=== PATIENT | male | born 1950 | race Caucasian/White ===

== ENCOUNTER 2024-04-23 13:44 | Outpatient (CLI) | payer OTHER, SELFPAY | END 2024-04-23 13:45 | disposition home or self-care (01) | LOC: WOUND 13:52 | PROVIDERS: PCP Family Medicine; Visit Provider Nurse Practitioner Family | DX: E10.621 Type 1 diabetes mellitus with foot ulcer (principal); L97.528 Non-pressure chronic ulcer of other part of left foot with other specified severity; L97.512 Non-pressure chronic ulcer of other part of right foot with fat layer exposed; I87.311 Chronic venous hypertension (idiopathic) with ulcer of right lower extremity; L97.812 Non-pressure chronic ulcer of other part of right lower leg with fat layer exposed; I87.2 Venous insufficiency (chronic) (peripheral); L97.818 Non-pressure chronic ulcer of other part of right lower leg with other specified severity; Z79.4 Long term (current) use of insulin; Z72.0 Tobacco use | CPT/HCPCS: 73630; 97602; G0463 ==

== ENCOUNTER 2024-04-23 15:53 | Outpatient (CLI) | payer OTHER, SELFPAY ==
--- NOTE | 2024-04-23 16:00 | CRLHL7_ITS ---
For Patients: As a result of the Century Cures Act, medical imaging exams and procedure reports are released immediately into your electronic medical record. You may view this report before your referring provider. If you have questions, please contact your health care provider. INDICATION: Nonhealing wounds. TECHNIQUE: Three views of the left foot. FINDINGS: Tiny nondisplaced chip fracture of the base of the 1st proximal phalanx seen on the frontal and oblique views. Diffuse demineralization. Bandage around the great toe. No subcutaneous gas or radiopaque foreign body. No specific radiographic evidence for osteomyelitis. Multifocal joint space narrowing greatest in the 1st IP joint. Diffuse arterial calcifications. Partially visualized tibial IM nail. Dictated by Taj Lindsey MD @ 04/24/2024 11:39:26 AM (Electronically Signed)
== END 2024-04-23 15:54 | disposition home or self-care (01) ==
LOC: RAD 15:54
PROVIDERS: PCP Family Medicine; Visit Provider Nurse Practitioner Family
DX: L97.529 Non-pressure chronic ulcer of other part of left foot with unspecified severity (principal)
CPT/HCPCS: 73630

== ENCOUNTER 2024-04-30 10:11 | Outpatient (CLI) | payer OTHER, SELFPAY | END 2024-04-30 10:12 | disposition home or self-care (01) | LOC: WOUND 10:11 | PROVIDERS: PCP Family Medicine; Visit Provider Nurse Practitioner Family | DX: I87.311 Chronic venous hypertension (idiopathic) with ulcer of right lower extremity (principal); I87.2 Venous insufficiency (chronic) (peripheral); L97.812 Non-pressure chronic ulcer of other part of right lower leg with fat layer exposed; E10.621 Type 1 diabetes mellitus with foot ulcer; L97.528 Non-pressure chronic ulcer of other part of left foot with other specified severity; L97.518 Non-pressure chronic ulcer of other part of right foot with other specified severity; Z72.0 Tobacco use; Z79.4 Long term (current) use of insulin | CPT/HCPCS: 97602 ==

== ENCOUNTER 2024-05-07 12:31 | Outpatient (CLI) | payer OTHER, SELFPAY | END 2024-05-07 12:32 | disposition home or self-care (01) | LOC: WOUND 12:32 | PROVIDERS: PCP Family Medicine; Visit Provider Nurse Practitioner Family | DX: E10.621 Type 1 diabetes mellitus with foot ulcer (principal); I70.245 Atherosclerosis of native arteries of left leg with ulceration of other part of foot; L97.528 Non-pressure chronic ulcer of other part of left foot with other specified severity; L97.512 Non-pressure chronic ulcer of other part of right foot with fat layer exposed; Z79.4 Long term (current) use of insulin; Z72.0 Tobacco use | CPT/HCPCS: 87070; 87186; 97597; 97602; G0463 ==

== ENCOUNTER 2024-05-14 07:01 | Outpatient (CLI) | payer OTHER, SELFPAY ==
--- NOTE | 2024-05-14 07:15 | CRLHL7_ITS ---
For Patients: As a result of the Century Cures Act, medical imaging exams and procedure reports are released immediately into your electronic medical record. You may view this report before your referring provider. If you have questions, please contact your health care provider. EXAM: MRI OF THE LEFT FOOT, WITHOUT AND WITH IV CONTRAST CLINICAL INDICATION: Chronic ulceration. COMPARISON PLAIN FILMS: 04/23/2024. COMPARISON CROSS-SECTIONAL IMAGING STUDIES: None. TECHNICAL: Axial, sagittal and coronal T1, PD and STIR images precontrast. Postcontrast T1 weighted imaging with fat saturation. Contrast: Dotarem, 18 mL IV. FINDINGS: SOFT TISSUES JOINTS AND BONES: Extensive soft tissue volume loss involving the dorsal and medial aspect of the great toe distal phalanx and distal aspect of the proximal phalanx. Soft tissue thickening in the plantar aspect of the great toe. No subcutaneous abscess. There is a mild amount of osseous volume loss intramedullary edema in the tuft of the distal phalanx consistent with osteomyelitis. No fatty marrow replacement in the base of the distal phalanx or in the proximal phalanx to suggest osteomyelitis. No effusion in the IP joint. No loss of fatty marrow in the 2nd toe to suggest osteomyelitis. Diffuse subcutaneous edema and enhancement throughout the toes and foot. Degenerative changes in the 1st MTP joint. TENDONS AND MUSCLES: Diffuse muscular atrophy and edema. No tenosynovitis. IMPRESSION: 1. Soft tissue volume loss in the great toe distal and proximal phalanx. Small area of osteomyelitis in the distal phalanx of the great toe. No subcutaneous abscess. 2. Soft tissue thickening in the plantar aspect of the great toe. 3. Subcutaneous edema and enhancement throughout the toes and foot. 4. Diffuse muscular atrophy and edema. 5. Degenerative changes in the 1st MTP joint. Dictated by Jean Paul Quiroga MD @ 05/14/2024 12:36:58 PM (Electronically Signed)
== END 2024-05-14 07:02 | disposition home or self-care (01) ==
LOC: MRI 07:02
PROVIDERS: PCP Family Medicine; Visit Provider Nurse Practitioner Family
DX: L97.528 Non-pressure chronic ulcer of other part of left foot with other specified severity (principal); M86.8X7 Other osteomyelitis, ankle and foot; M19.072 Primary osteoarthritis, left ankle and foot
CPT/HCPCS: 73720; 96372; 97602; A9575; J0696

== ENCOUNTER 2024-05-21 10:58 | Outpatient (CLI) | payer OTHER, SELFPAY | END 2024-05-21 10:59 | disposition home or self-care (01) | PROVIDERS: PCP Family Medicine; Visit Provider Nurse Practitioner Family | DX: E10.621 Type 1 diabetes mellitus with foot ulcer (principal); I87.2 Venous insufficiency (chronic) (peripheral); L97.528 Non-pressure chronic ulcer of other part of left foot with other specified severity; L97.518 Non-pressure chronic ulcer of other part of right foot with other specified severity; Z79.4 Long term (current) use of insulin | CPT/HCPCS: 87070; 87186; 97597; 97602 ==

== ENCOUNTER 2024-05-28 11:23 | Outpatient (CLI) | payer OTHER, SELFPAY ==
[2024-05-28 12:47] LABS: Chloride* 105 mmol/L (96-114); Potassium* 4.6 mmol/L (3.6-5.1); Sodium* 140 mmol/L (135-149)
[2024-05-28 12:50] LABS: Anion Gap 6 mEq/L (7-15); Blood Urea Nitrogen* 17 mg/dL (7-30); Carbon Dioxide* 29 mmol/L (20-32); Estimated Glomerular Filt Rate 79 ml/min
[2024-05-28 12:51] LABS: Calcium* 9.1 mg/dL (8.4-10.6); Glucose* 209 mg/dL (60-115)
== END 2024-05-28 11:24 | disposition home or self-care (01) ==
LOC: WOUND 11:23
PROVIDERS: PCP Family Medicine; Visit Provider Nurse Practitioner Family
DX: E11.621 Type 2 diabetes mellitus with foot ulcer (principal); M86.172 Other acute osteomyelitis, left ankle and foot; L97.528 Non-pressure chronic ulcer of other part of left foot with other specified severity; L97.518 Non-pressure chronic ulcer of other part of right foot with other specified severity; Z79.4 Long term (current) use of insulin; Z79.899 Other long term (current) drug therapy
CPT/HCPCS: 36415; 80048; 97597

== ENCOUNTER 2024-06-04 14:34 | Outpatient (CLI) | payer OTHER, SELFPAY | END 2024-06-04 14:35 | disposition home or self-care (01) | LOC: WOUND 14:34 | PROVIDERS: PCP Family Medicine; Visit Provider Nurse Practitioner Family | DX: E10.621 Type 1 diabetes mellitus with foot ulcer (principal); M86.172 Other acute osteomyelitis, left ankle and foot; L97.528 Non-pressure chronic ulcer of other part of left foot with other specified severity; L97.512 Non-pressure chronic ulcer of other part of right foot with fat layer exposed; Z79.4 Long term (current) use of insulin | CPT/HCPCS: 97602; G0463 ==

== ENCOUNTER 2024-06-11 15:13 | Outpatient (CLI) | payer OTHER, SELFPAY | END 2024-06-11 15:14 | disposition home or self-care (01) | LOC: WOUND 15:13 | PROVIDERS: PCP Family Medicine; Visit Provider Physician Assistant Surgical | DX: E10.621 Type 1 diabetes mellitus with foot ulcer (principal); M86.172 Other acute osteomyelitis, left ankle and foot; L97.528 Non-pressure chronic ulcer of other part of left foot with other specified severity; L97.512 Non-pressure chronic ulcer of other part of right foot with fat layer exposed; Z72.0 Tobacco use; Z79.4 Long term (current) use of insulin | CPT/HCPCS: G0463 ==

== ENCOUNTER 2024-06-18 14:39 | Outpatient (CLI) | payer OTHER, SELFPAY | END 2024-06-18 14:40 | disposition home or self-care (01) | LOC: WOUND 14:39 | PROVIDERS: PCP Family Medicine; Visit Provider Nurse Practitioner Family | DX: E10.621 Type 1 diabetes mellitus with foot ulcer (principal); L97.528 Non-pressure chronic ulcer of other part of left foot with other specified severity; Z79.4 Long term (current) use of insulin | CPT/HCPCS: 97597 ==

== ENCOUNTER 2024-06-25 13:14 | Outpatient (CLI) | payer OTHER, SELFPAY | END 2024-06-25 13:15 | disposition home or self-care (01) | LOC: WOUND 13:14 | PROVIDERS: PCP Family Medicine; Visit Provider Nurse Practitioner Family | DX: E11.621 Type 2 diabetes mellitus with foot ulcer (principal); M86.172 Other acute osteomyelitis, left ankle and foot; L97.528 Non-pressure chronic ulcer of other part of left foot with other specified severity | CPT/HCPCS: 97597; 97598 ==

== ENCOUNTER 2024-07-09 13:23 | Outpatient (CLI) | payer OTHER, SELFPAY | END 2024-07-09 13:24 | disposition home or self-care (01) | LOC: WOUND 13:23 | PROVIDERS: PCP Family Medicine; Visit Provider Nurse Practitioner Family | DX: E11.621 Type 2 diabetes mellitus with foot ulcer (principal); L97.528 Non-pressure chronic ulcer of other part of left foot with other specified severity; I87.312 Chronic venous hypertension (idiopathic) with ulcer of left lower extremity; I87.2 Venous insufficiency (chronic) (peripheral); L97.222 Non-pressure chronic ulcer of left calf with fat layer exposed; Z79.4 Long term (current) use of insulin | CPT/HCPCS: 11043; 11046; 97602 ==

== ENCOUNTER 2024-07-16 13:23 | Outpatient (CLI) | payer OTHER, SELFPAY | END 2024-07-16 13:24 | disposition home or self-care (01) | LOC: WOUND 13:23 | PROVIDERS: PCP Family Medicine; Visit Provider Nurse Practitioner Family | DX: E10.621 Type 1 diabetes mellitus with foot ulcer (principal); L97.528 Non-pressure chronic ulcer of other part of left foot with other specified severity; I87.312 Chronic venous hypertension (idiopathic) with ulcer of left lower extremity; I87.2 Venous insufficiency (chronic) (peripheral); L97.228 Non-pressure chronic ulcer of left calf with other specified severity; Z79.4 Long term (current) use of insulin | CPT/HCPCS: 11042; 11045; 97597; 97598 ==

== ENCOUNTER 2024-07-23 13:21 | Outpatient (CLI) | payer OTHER, SELFPAY | END 2024-07-23 13:22 | disposition home or self-care (01) | LOC: WOUND 13:21 | PROVIDERS: PCP Family Medicine; Visit Provider Nurse Practitioner Family | DX: E11.621 Type 2 diabetes mellitus with foot ulcer (principal); L97.528 Non-pressure chronic ulcer of other part of left foot with other specified severity; I87.312 Chronic venous hypertension (idiopathic) with ulcer of left lower extremity; I87.2 Venous insufficiency (chronic) (peripheral); L97.222 Non-pressure chronic ulcer of left calf with fat layer exposed; Z79.4 Long term (current) use of insulin | CPT/HCPCS: 97597; 97598; 97602 ==

== ENCOUNTER 2024-07-30 13:24 | Outpatient (CLI) | payer OTHER, SELFPAY | END 2024-07-30 13:25 | disposition home or self-care (01) | LOC: WOUND 13:24 | PROVIDERS: PCP Family Medicine; Visit Provider Nurse Practitioner Family | DX: E11.621 Type 2 diabetes mellitus with foot ulcer (principal); L97.528 Non-pressure chronic ulcer of other part of left foot with other specified severity; I87.312 Chronic venous hypertension (idiopathic) with ulcer of left lower extremity; I87.2 Venous insufficiency (chronic) (peripheral); L97.222 Non-pressure chronic ulcer of left calf with fat layer exposed; Z72.0 Tobacco use | CPT/HCPCS: 96372; 97597; 97598; 97602; G0463; J0696 ==

== ENCOUNTER 2024-08-06 13:36 | Outpatient (CLI) | payer OTHER, SELFPAY | END 2024-08-06 13:37 | disposition home or self-care (01) | LOC: WOUND 13:36 | PROVIDERS: PCP Family Medicine; Visit Provider Nurse Practitioner Family | DX: E10.621 Type 1 diabetes mellitus with foot ulcer (principal); L97.528 Non-pressure chronic ulcer of other part of left foot with other specified severity; Z79.4 Long term (current) use of insulin | CPT/HCPCS: 97597; 97598 ==

== ENCOUNTER 2024-08-13 13:13 | Outpatient (CLI) | payer OTHER, SELFPAY | END 2024-08-13 13:14 | disposition home or self-care (01) | LOC: WOUND 13:13 | PROVIDERS: PCP Family Medicine; Visit Provider Nurse Practitioner Family | DX: E10.621 Type 1 diabetes mellitus with foot ulcer (principal); L97.528 Non-pressure chronic ulcer of other part of left foot with other specified severity; Z72.0 Tobacco use | CPT/HCPCS: 97597; 97598 ==

== ENCOUNTER 2024-08-20 13:35 | Outpatient (CLI) | payer OTHER, SELFPAY | END 2024-08-20 13:36 | disposition home or self-care (01) | LOC: WOUND 13:35 | PROVIDERS: PCP Family Medicine; Visit Provider Nurse Practitioner Family | DX: E10.621 Type 1 diabetes mellitus with foot ulcer (principal); L97.528 Non-pressure chronic ulcer of other part of left foot with other specified severity; Z79.4 Long term (current) use of insulin | CPT/HCPCS: 97597; 97598 ==